=== PATIENT | male | born 1990 | race Caucasian/White ===

== ENCOUNTER 2018-07-13 14:36 | Emergency (ER) | payer MEDICAID, OTHER ==
[~2018-07-13] VITALS: Ht 177.8 cm; Wt 63.6 kg
[2018-07-13] MEDS ORDERED: HYDR-565 PO (15:20)
[2018-07-13] MEDS ORDERED: TETanus/Pertussis (Acell)/Diphther VAC/PF (Tdap-Adult) 0.5ml syringe IM ONE (15:25)
[2018-07-13] MEDS ORDERED: HYDROcodone/acetaminophen 10/325mg tab PO ONE (15:30)
[2018-07-13 16:46] VITALS: BP 123/63
== END 2018-07-13 16:47 | disposition home or self-care (01) ==
LOC: ER 14:37
DX: S71.001A Unspecified open wound, right hip, initial encounter (principal); S60.511A Abrasion of right hand, initial encounter; F12.90 Cannabis use, unspecified, uncomplicated; Z79.899 Other long term (current) drug therapy; V29.9XXA Motorcycle rider (driver) (passenger) injured in unspecified traffic accident, initial encounter; Y93.89 Activity, other specified; Y92.89 Other specified places as the place of occurrence of the external cause; Y99.8 Other external cause status
CPT/HCPCS: 73110; 73502; 90471; 90715; 99284; A6223; A6255; A6449

== ENCOUNTER 2020-06-25 13:52 | Emergency (ER) | payer MEDICAID, OTHER ==
[~2020-06-25] VITALS: Ht 177.8 cm; Wt 63.0 kg
[~2020-06-25 13:52] MED LIST: ONDA4TAB6 PO
[2020-06-25] MEDS ORDERED: ondansetron/PF 4mg/2ml inj IV ONE (14:05)
[2020-06-25] MEDS ORDERED: morphine 4 MG/ML inj SYRINge IV ONE (14:05)
[2020-06-25] MEDS ORDERED: iohexol 300mg/ml 100ml inj. ONE (14:25)
[2020-06-25] MEDS ORDERED: bacitracin 15gm ointment TP ONE (14:25)
[2020-06-25] MEDS ORDERED: LIDOcaine Viscous 15ml cup TP ONE (14:25)
--- NOTE | 2020-06-25 14:31 | NUR ---
PT TO CT VIA PAVEL
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
[2020-06-25 15:13] LABS: BASOPHILS % (AUTO) 0.1 % (0-1); EOSINOPHILS % (AUTO) 0.1 % (0-6); HEMATOCRIT 43.6 % (42.0-52.0); HEMOGLOBIN 14.6 g/dl (14.0-17.9); LYMPHOCYTES % (AUTO) 3.6 % (21-51); MEAN CORPUSCULAR HEMOGLOBIN 31.7 PG (27.0-31.0); MEAN CORPUSCULAR HGB CONC 33.5 g/dL (33.0-36.5); MEAN CORPUSCULAR VOLUME 94.5 FL (78-98); MEAN PLATELET VOLUME 8.9 FL (7.4-10.4); MONOCYTES # (AUTO) 1.4 X10'3 (0-0.9); MONOCYTES % (AUTO) 5.4 % (2-12); NEUTROPHILS # (AUTO) 23.9 X10'3 (1.8-7.7); NEUTROPHILS % (AUTO) 90.8 % (42-75); PLATELET COUNT 178 X10'3 (140-440); RED BLOOD COUNT 4.61 X10'6 (4.70-6.10); RED CELL DISTRIBUTION WIDTH 13.5 % (11.5-14.5)
[2020-06-25 15:15] LABS: WHITE BLOOD COUNT 26.3 X10'3 (4.5-11.0)
--- NOTE | 2020-06-25 15:16 | NUR ---
critical value WBC 26.3
[2020-06-25 15:28] LABS: ALANINE AMINOTRANSFERASE 23 U/L (12-78); ALBUMIN 3.5 G/DL (3.4-5.0); ALBUMIN/GLOBULIN RATIO 1.3 (1.1-1.5); ALKALINE PHOSPHATASE 48 IU/L (46-116); ANION GAP 5 (8-16); ASPARTATE AMINO TRANSFERASE 27 U/L (10-37); BILIRUBIN,TOTAL 0.7 MG/DL (0.1-1.0); BLOOD UREA NITROGEN 16 MG/DL (7-18); BUN/CREATININE RATIO 15.1 (5.4-32.0); CALCIUM 8.4 MG/DL (8.5-10.1); CHLORIDE 105 MMOL/L (99-107); CREATININE 1.06 MG/DL (0.60-1.10); GLUCOSE 87 MG/DL (70-104); POTASSIUM 3.5 MMOL/L (3.5-5.1); SODIUM 137 MMOL/L (135-145); TOTAL CARBON DIOXIDE 26.9 MMOL/L (24-32); TOTAL PROTEIN 6.3 G/DL (6.4-8.2); eGFR 83 ML/MIN
[2020-06-25] MEDS ORDERED: normal saline 1000ML IV soln IV ONE (15:30)
[2020-06-25 15:33] LABS: ETHANOL < 0.010 GM/DL (0.0-0.010); TROPONIN I < 0.04 NG/ML (0.0-0.05)
[2020-06-25 15:39] LABS: PLATELET ESTIMATE NORMAL; TOTAL CELLS COUNTED 100
[2020-06-25 15:45] LABS: CLARITY,URINE CLEAR (Clear); COLOR,URINE YELLOW (Yellow); GLUCOSE, URINE NEGATIVE (Neg); KETONES,URINE NEGATIVE (Neg); LEUKOCYTE ESTERASE ,URINE NEGATIVE (Neg); NITRITES, URINE NEGATIVE (Neg); OCCULT BLOOD,URINE NEGATIVE (Neg); PROTEIN,URINE TRACE mg/dl (Neg); UROBILINOGEN,URINE 0.2 E.U/dL (0.2-1.0)
[2020-06-25 15:49] LABS: UA COLLECTION TYPE URINAL
[2020-06-25 15:50] LABS: BACTERIA,URINE NONE SEEN /HPF (Neg); HYALINE CASTS 0-3 /LPF (NEGATIVE); MUCUS STRANDS MODERATE /LPF (Neg); RBC,URINE NONE SEEN /HPF (0-2); SQUAMOUS EPITHELIAL CELL,UR NONE SEEN /LPF (FEW); WBC,URINE 0-4 /HPF (0-4)
[2020-06-25 15:55] LABS: URINE AMPHETAMINE SCREEN NEGATIVE (Neg); URINE BARBITUATE SCREEN NEGATIVE (Neg); URINE BENZODIAZEPINES SCREEN NEGATIVE (Neg); URINE CANNABINOID SCREEN POSITIVE (Neg); URINE COCAINE SCREEN POSITIVE (Neg); URINE METHADONE SCREEN NEGATIVE (Neg); URINE OPIATE SCREEN POSITIVE (Neg); URINE PHENCYCLIDINE SCREEN NEGATIVE (Neg)
--- NOTE | 2020-06-25 16:32 | NUR ---
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
--- NOTE | 2020-06-25 16:37 | NUR ---
2ND LITER NS INFUSING W/O
[2020-06-25 17:19] VITALS: BP 134/94
== END 2020-06-25 17:22 | disposition home or self-care (01) ==
LOC: ER 13:53
DX: S20.211A Contusion of right front wall of thorax, initial encounter (principal); T14.8XXA Other injury of unspecified body region, initial encounter; F12.90 Cannabis use, unspecified, uncomplicated; F14.90 Cocaine use, unspecified, uncomplicated; Z72.89 Other problems related to lifestyle; Z79.899 Other long term (current) drug therapy; V86.96XA Unspecified occupant of dirt bike or motor/cross bike injured in nontraffic accident, initial encounter; Y93.89 Activity, other specified; Y92.89 Other specified places as the place of occurrence of the external cause; Y99.8 Other external cause status
CPT/HCPCS: 36415; 70450; 71260; 72125; 74177; 80053; 80305; 80320; 81001; 83605; 84145; 84484; 85025; 87040; 96374; 96375; 99285; J2270; J2405; J7030; Q9967

== ENCOUNTER 2021-01-08 14:18 | Emergency (ER) | payer MEDICAID ==
[~2021-01-08] VITALS: Ht 175.3 cm; Wt 61.4 kg
[2021-01-08 15:25] LABS: BASOPHILS # (AUTO) 0.1 X10'3 (0-0.2); BASOPHILS % (AUTO) 0.4 % (0-1); EOSINOPHILS # (AUTO) 0.2 X10'3 (0-0.9); EOSINOPHILS % (AUTO) 1.3 % (0-6); HEMATOCRIT 47.3 % (42.0-52.0); HEMOGLOBIN 15.9 g/dl (14.0-17.9); LYMPHOCYTES # (AUTO) 3.1 X10'3 (1.1-4.8); LYMPHOCYTES % (AUTO) 18.1 % (21-51); MEAN CORPUSCULAR HEMOGLOBIN 31.3 PG (27.0-31.0); MEAN CORPUSCULAR HGB CONC 33.6 g/dL (33.0-36.5); MEAN CORPUSCULAR VOLUME 93.1 FL (78-98); MEAN PLATELET VOLUME 8.9 FL (7.4-10.4); MONOCYTES # (AUTO) 0.8 X10'3 (0-0.9); MONOCYTES % (AUTO) 4.7 % (2-12); NEUTROPHILS # (AUTO) 12.8 X10'3 (1.8-7.7); NEUTROPHILS % (AUTO) 75.5 % (42-75); PLATELET COUNT 238 X10'3 (140-440); RED BLOOD COUNT 5.08 X10'6 (4.70-6.10); RED CELL DISTRIBUTION WIDTH 13.6 % (11.5-14.5); WHITE BLOOD COUNT 16.9 X10'3 (4.5-11.0)
[2021-01-08 15:37] LABS: PARTIAL THROMBOPLASTIN TIME 26 SECONDS (22-32)
[2021-01-08 15:40] LABS: ALANINE AMINOTRANSFERASE 25 U/L (12-78); ALBUMIN 4.1 G/DL (3.4-5.0); ALBUMIN/GLOBULIN RATIO 1.1 (1.1-1.5); ALKALINE PHOSPHATASE 78 IU/L (46-116); AMYLASE 81 U/L (25-115); ANION GAP 6 (8-16); ASPARTATE AMINO TRANSFERASE 13 U/L (10-37); BILIRUBIN,TOTAL 0.4 MG/DL (0.1-1.0); BLOOD UREA NITROGEN 18 MG/DL (7-18); BUN/CREATININE RATIO 19.8 (5.4-32.0); CALCIUM 9.5 MG/DL (8.5-10.1); CHLORIDE 104 MMOL/L (99-107); CREATININE 0.91 MG/DL (0.60-1.10); GLUCOSE 104 MG/DL (70-104); LIPASE 115 U/L (73-393); POTASSIUM 4.1 MMOL/L (3.5-5.1); SODIUM 139 MMOL/L (135-145); TOTAL CARBON DIOXIDE 28.8 MMOL/L (24-32); TOTAL PROTEIN 7.7 G/DL (6.4-8.2); eGFR > 90 ML/MIN
[2021-01-08] MEDS ORDERED: proCHLORperazine 10 MG/2 ml inj IV ONE ×2 (15:50→16:25)
[2021-01-08] MEDS ORDERED: normal saline 1000ML IV soln IVB ONE (16:25)
[2021-01-08] MEDS ORDERED: diphenhydrAMINE 50 mg/ml inj IV ONE (16:25)
[2021-01-08] MEDS ORDERED: ketorolac tromethamine 15mg/ml inj. IV ONE (16:25)
[2021-01-08 17:41] VITALS: BP 134/89
== END 2021-01-08 17:42 | disposition home or self-care (01) ==
LOC: ER 14:18
DX: B34.9 Viral infection, unspecified (principal); R51.9 Headache, unspecified; R53.1 Weakness; R11.10 Vomiting, unspecified; R20.0 Anesthesia of skin; R10.9 Unspecified abdominal pain; F12.90 Cannabis use, unspecified, uncomplicated; Z79.899 Other long term (current) drug therapy
CPT/HCPCS: 80053; 82150; 83690; 85025; 85610; 85730; 96361; 96374; 96375; 99284; J0780; J1200; J1885; J7030

== ENCOUNTER 2021-03-17 22:36 | Emergency (ER) | payer MEDICAID ==
[~2021-03-17] VITALS: Ht 177.8 cm; Wt 63.6 kg
[2021-03-17] MEDS ORDERED: proparacaine 0.5% ophthalmic drops 15ml EACHEYE ONE (23:30)
[2021-03-17] MEDS ORDERED: proparacaine 0.5% ophthalmic drops 15ml ONE (23:32)
--- NOTE | 2021-03-17 23:34 | NUR ---
he was in such pain that the PA ordered the eye gtts for him.
--- NOTE | 2021-03-17 23:40 | NUR ---
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 Waiting to be evaluated
[2021-03-17] MEDS ORDERED: gentamicin 0.3% ophthalmic drops 5ML EACHEYE ONE (23:55)
--- NOTE | 2021-03-17 23:59 | NUR ---
dr. johnson reports to pt he has a suspected "welinding keratitis". pt to be given pain meds prior to dc and has someone who can pick him up. pt reports the eye drops have helped with the pain.
[2021-03-18] MEDS ORDERED: HYDROcodone/acetaminophen 5mg/325mg tablet PO ONE (00:05)
[2021-03-18] MEDS ORDERED: HYDR-3965 PO (00:06)
[2021-03-18 00:18] VITALS: BP 124/90
== END 2021-03-18 00:21 | disposition home or self-care (01) ==
LOC: ER 22:36
DX: H16.133 Photokeratitis, bilateral (principal); H57.13 Ocular pain, bilateral; F12.90 Cannabis use, unspecified, uncomplicated; Z79.899 Other long term (current) drug therapy
CPT/HCPCS: 99283

== ENCOUNTER 2021-09-10 02:02 | Emergency (ER) | payer MEDICAID ==
[~2021-09-10] VITALS: Ht 177.8 cm; Wt 59.1 kg
[2021-09-10 02:06] VITALS: BP 115/76
[2021-09-10] MEDS ORDERED: proparacaine 0.5% ophthalmic drops 15ml EACHEYE ONE (02:15)
[2021-09-10] MEDS ORDERED: OXYC-145 PO (03:04)
[2021-09-10] MEDS ORDERED: ERYT1OIN6 EACHEYE (03:04)
[2021-09-10] MEDS ORDERED: oxyCODONE/APAP 5-325mg tablet PO ONE ×2 (03:05→03:25)
== END 2021-09-10 03:30 | disposition home or self-care (01) ==
LOC: ER 02:03
DX: H16.139 Photokeratitis, unspecified eye (principal); H16.133 Photokeratitis, bilateral; F12.10 Cannabis abuse, uncomplicated
CPT/HCPCS: 99283

== ENCOUNTER 2021-12-23 06:51 | Emergency (ER) | payer MEDICAID ==
[~2021-12-23] VITALS: Ht 177.8 cm; Wt 56.0 kg
[~2021-12-23 06:51] MED LIST changes: +OXYC-145 PO
[2021-12-23 06:54] VITALS: BP 135/101
[2021-12-23] MEDS ORDERED: ondansetron 4mg rapidly disintigrating tab PO ONE (07:25)
[2021-12-23] MEDS ORDERED: ibuprofen tablet 400 MG TABLET PO ONE (07:25)
[2021-12-23] MEDS ORDERED: acetaminophen 325mg tablet PO ONE (07:25)
[2021-12-23] MEDS ORDERED: SULF1TAB49 PO (07:43)
[2021-12-23] MEDS ORDERED: bacitracin 15gm ointment TP ONE (07:45)
== END 2021-12-23 07:49 | disposition home or self-care (01) ==
LOC: ER 06:51
DX: L02.211 Cutaneous abscess of abdominal wall (principal); L03.311 Cellulitis of abdominal wall; F12.90 Cannabis use, unspecified, uncomplicated; Z79.2 Long term (current) use of antibiotics; Z79.899 Other long term (current) drug therapy
CPT/HCPCS: 10060; 99284

== ENCOUNTER 2021-12-24 07:10 | Emergency (ER) | payer MEDICAID ==
[~2021-12-24] VITALS: Ht 177.8 cm; Wt 59.8 kg
[~2021-12-24 07:10] MED LIST changes: +SULF1TAB49 PO
[2021-12-24 07:11] VITALS: BP 127/90
[2021-12-24] MEDS ORDERED: LIDOcaine 1% W/epiNEPHrine 1:100,000 20ml vial ONE (08:00)
== END 2021-12-24 08:45 | disposition home or self-care (01) ==
LOC: ER 07:10
DX: L02.211 Cutaneous abscess of abdominal wall (principal); F12.10 Cannabis abuse, uncomplicated
CPT/HCPCS: 10060; 99282; J3490

== ENCOUNTER 2023-09-02 15:58 | Emergency (ER) | payer MEDICAID ==
[~2023-09-02] VITALS: Ht 177.8 cm; Wt 70.0 kg
[~2023-09-02 15:58] MED LIST changes: -SULF1TAB49 PO
[2023-09-02 16:04] VITALS: BP 156/104; PULSE 88; RESP 18; O2SAT 99
[2023-09-02] MEDS ORDERED: LIDOcaine 1% 30ml preserv. free vial IJ ONE ×2 (16:50→17:05)
[2023-09-02] MEDS ORDERED: CEPH-585 PO (17:08)
[2023-09-02 18:03] VITALS: TEMP 98.8
== END 2023-09-02 18:07 | disposition home or self-care (01) ==
LOC: ER 15:59
DX: S61.217A Laceration without foreign body of left little finger without damage to nail, initial encounter (principal); X58.XXXA Exposure to other specified factors, initial encounter; Y93.89 Activity, other specified; Y92.89 Other specified places as the place of occurrence of the external cause; Y99.8 Other external cause status
CPT/HCPCS: 12001; 73140; 99283; A6258

== ENCOUNTER 2025-03-25 15:31 | Emergency (ER) | payer MEDICAID ==
[~2025-03-25] VITALS: Ht 177.8 cm; Wt 56.7 kg
[2025-03-25 15:37] VITALS: TEMP 99.8
--- NOTE | 2025-03-25 16:28 | Physician Documentation ---
History of Present Illness ~ Chief Complaint: Abdominal Pain w/vomiting Stated Complaint: FEVER Time Seen by MD: 16:10 Primary Medical Doctor: NONE HPI This is a 34-year-old male who presents with 4-5 days of nausea, vomiting and diarrhea, patient reports his upper abdomen has begun to hurt as well though he is unsure if this is from the persistent vomiting. Patient also reports generalized back pain, sore throat, and intermittent cough that has began since his illness began. Patient reports that he has been unable to keep any food down and any time he drinks water he vomits. Medication Reconciliation Allergies: Coded Allergies: No Known Allergies (Unverified , 03/17/21) Scheduled Ondansetron Hcl (Zofran), 1 TAB PO Q8H Scheduled PRN ONDANSETRON ODT 4mg tablet (Ondansetron Odt), 1 TAB PO Q6H PRN PRN for nausea/vomiting Oxycodone HCl/Acetaminophen (Percocet 5-325 mg Tablet), 1-2 TABLET PO Q4H PRN for pain Past Medical History Past Medical History: No Pertinent History Past Surgical History: no surgical history Alcohol Use: None Drug Use: marijuana Lives In: Home Occupation: employed Review of Systems ROS Nausea, vomiting, diarrhea, back pain, sore throat as stated above in the HPI, otherwise all systems are reviewed and negative. Physical Exam Vital Signs: Temperature: 99.8, Source: Oral, Heart Rate: 85, Respiratory Rate: 16, BP: 128/96, Pulse Oximetry: 97, Weight: 56.700 Oxygen Flow Rate: 0 Physical Exam VITALS: Reviewed and as above. GENERAL: Alert, nontoxic appearing, no apparent distress. 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 Tablet (Zofran Odt T (03/25/25 17:05) Normal Saline 1000ml (Sodium Chloride 10 (03/25/25 17:45) Ketorolac Trometh 15mg/Ml Vial (Toradol (03/25/25 17:45) Ketorolac Trometh 15mg/Ml Vial (Toradol (03/25/25 17:58) Ondansetron Disint. Tablet (Zofran Odt T (03/25/25 19:35) Medications Received in ER Medications (Trade) Dose Ordered Sig/Pratik Route PRN Reason Start Time Stop Time Status Last Admin Dose Admin (Zofran ODT tablet) 4 mg ONCE ONCE PO 03/25/25 17:05 03/25/25 17:06 DC 03/25/25 17:45 4 MG (sodium chloride 1000ml IV soln) 1,000 ml ONCE ONCE IVB 03/25/25 17:45 03/25/25 17:47 DC 03/25/25 18:00 1,000 ML (Toradol injection) 15 mg ONCE STAT IV 03/25/25 17:58 03/25/25 17:59 DC 03/25/25 17:59 15 MG (Zofran ODT tablet) 4 mg ONCE ONCE PO 03/25/25 19:35 03/25/25 19:39 DC 03/25/25 19:43 4 MG Vital Signs 03/25/25 03/25/25 03/25/25 03/25/25 15:37 17:59 19:32 19:32 Temp 99.8 Pulse 85 78 Resp 16 15 16 B/P (MAP) 128/96 123/51 (75) Pulse Ox 97 97 O2 Flow Rate 0 0 03/25/25 19:47 Pulse 79 Resp 16 B/P (MAP) 98/67 Pulse Ox 99 Laboratory Tests Test 03/25/25 16:04 03/25/25 18:24 White Blood Count 8.7 Red Blood Count 5.27 Hemoglobin 16.6 Hematocrit 47.8 Mean Corpuscular Volume 90.7 Mean Corpuscular Hemoglobin 31.5 H Mean Corpuscular Hemoglobin Concent 34.7 Red Cell Distribution Width 13.5 Platelet Count 149 Mean Platelet Volume 9.5 Neutrophils (%) (Auto) 74.6 Lymphocytes (%) (Auto) 15.7 L Monocytes (%) (Auto) 9.4 Eosinophils (%) (Auto) 0.1 Basophils (%) (Auto) 0.2 Neutrophils # (Auto) 6.5 Lymphocytes # (Auto) 1.4 Monocytes # (Auto) 0.8 Eosinophils # (Auto) 0.0 Basophils # (Auto) 0.0 CBC Comment Sodium Level 138 Potassium Level 3.6 Chloride Level 102 Carbon Dioxide Level 27.9 Anion Gap 8 Blood Urea Nitrogen 11 Creatinine 1.05 Estimated GFR/1.73 m2 81 BUN/Creatinine Ratio 10.5 Glucose Level 95 Calcium Level 8.7 Total Bilirubin 0.6 Aspartate Amino Transf (AST/SGOT) 27 Alanine Aminotransferase (ALT/SGPT) 29 Alkaline Phosphatase 78 Total Protein 7.3 Albumin 3.8 Globulin 3.5 Albumin/Globulin Ratio 1.1 Lipase 27 Chemistry Comments SARS-CoV-2 Antigen (Rapid) Negative Medical Decision Making Findings This 34-year-old male presented with four days of nausea, vomiting diarrhea, sore throat, nasal congestion and intermittent cough along with subjective fever, symptoms do appear to be viral origin based on history and physical. Patient's labs were without evidence of significant electrolyte or metabolic derangement and did not indicate systemic infection, patient's vital signs stab le and physical exam relatively benign. I suspect patient has upper abdominal pain was related to pain from vomiting as patient reported the pain decreases after not vomiting for some time, therefore further imaging of his abdomen was not indicated. Patient was medicated for Zofran and received 1L of IV fluids reporting significant improvement in symptoms and is now able to tolerate p.o. intake. I discussed patient plan for discharge with a prescription for Zofran which he agrees to, discussed with patient careful return to care precautions which he verbalized understanding of reporting that he would return to the [facility] department if symptoms were to return or worsen. At this time patient is appropriate for discharge and outpatient follow up. Diff Dx Pain:Considerations: Include: Appendicitis, Cholangitis, Cholecystitis, Cholelithasis, Constipation, Diverticular disease, Gastritis, Gastroenteritis, Inflammatory BD, Urinary tract infection, Urolithiasis Diff Dx N/V/D:Considerations: Include: Diarrhea - bacterial, Diarrhea - parasitic, Diarrhea - viral, Electrolyte imbalance, Food poisoning, Hypovolemia, Hypotension Departure Disposition: HOME / SELF CARE / HOMELESS Impression: Primary Impression: Vomiting Qualified Codes: R11.2 - Nausea with vomiting, unspecified Additional Impression: Diarrhea Qualified Codes: R19.7 - Diarrhea, unspecified Condition: Improved Discharge Instructions: Viral Gastroenteritis, Adult, [id number] Additional Instructions: Please take the prescribed Zofran to help with your vomiting in order to maintain oral intake of food and water, begin eating slowly small meals and sips until you can tolerate larger quantities of food and drink. You may use ibuprofen and or Tylenol as needed for pain or fever as directed by [id number] packaging. Please follow up with your primary care provider in the next few days. Please return to the emergency department for any new or worsening concerning symptoms including but not limited to fever over 100.4 that does not lower with ibuprofen or Tylenol or if you are not able to eat or drink. Referrals: NO PRIMARY CARE PROVIDER (PCP) Prescriptions ONDANSETRON ODT 4mg tablet (ONDANSETRON ODT) 4 Mg Tab.rapdis 1 TAB PO Q6H PRN PRN for nausea/vomiting for 4 Days, #16 TAB 0 Refills Prov: JOSHUA CUEVAS 03/25/25 Education Educated: Patient Educated regarding: diagnosis, treatment, prognosis, need for follow up Signature Scribe Signature: No scribe Attestation: The note accurately reflects work and decisions made by me.ALEX Kellogg 03/25/25 22:06 JOSHUA CUEVAS March 25, 2025 16:28
[2025-03-25 16:43] LABS: ALANINE AMINOTRANSFERASE 29 U/L (12-78); ALBUMIN 3.8 G/DL (3.4-5.0); ALBUMIN/GLOBULIN RATIO 1.1 (1.1-1.5); ALKALINE PHOSPHATASE 78 IU/L (46-116); ANION GAP 8 (8-16); ASPARTATE AMINO TRANSFERASE 27 U/L (10-37); BILIRUBIN,TOTAL 0.6 MG/DL (0.1-1.0); BLOOD UREA NITROGEN 11 MG/DL (7-18); BUN/CREATININE RATIO 10.5 (10.0-20.0); CALCIUM 8.7 MG/DL (8.5-10.1); CHLORIDE 102 MMOL/L (99-107); CREATININE 1.05 MG/DL (0.60-1.10); GLUCOSE 95 MG/DL (70-104); POTASSIUM 3.6 MMOL/L (3.5-5.1); SODIUM 138 MMOL/L (135-145); TOTAL CARBON DIOXIDE 27.9 MMOL/L (24-32); TOTAL PROTEIN 7.3 G/DL (6.4-8.2); eCRCL 80 ML/MIN; eGFR 81 ML/MIN
[2025-03-25 16:55] LABS: BASOPHILS % (AUTO) 0.2 % (0-1); EOSINOPHILS % (AUTO) 0.1 % (0-6); HEMATOCRIT 47.8 % (42.0-52.0); HEMOGLOBIN 16.6 g/dl (14.0-17.9); LYMPHOCYTES # (AUTO) 1.4 X10'3 (1.1-4.8); LYMPHOCYTES % (AUTO) 15.7 % (21-51); MEAN CORPUSCULAR HEMOGLOBIN 31.5 PG (27.0-31.0); MEAN CORPUSCULAR HGB CONC 34.7 g/dL (33.0-36.5); MEAN CORPUSCULAR VOLUME 90.7 FL (78-98); MEAN PLATELET VOLUME 9.5 FL (7.4-10.4); MONOCYTES # (AUTO) 0.8 X10'3 (0-0.9); MONOCYTES % (AUTO) 9.4 % (2-12); NEUTROPHILS # (AUTO) 6.5 X10'3 (1.8-7.7); NEUTROPHILS % (AUTO) 74.6 % (42-75); PLATELET COUNT 149 X10'3 (140-440); RED BLOOD COUNT 5.27 X10'6 (4.70-6.10); RED CELL DISTRIBUTION WIDTH 13.5 % (11.5-14.5); WHITE BLOOD COUNT 8.7 X10'3 (4.5-11.0)
[2025-03-25 16:58] LABS: LIPASE 27 U/L (16-77)
[2025-03-25] MEDS: ondansetron 4mg rapidly disintigrating tab PO ONE ×2 (17:45→19:43)
[2025-03-25] MEDS: ketorolac trometh 15mg/ml vial 15 MG/ML ML IV STA (17:59)
[2025-03-25] MEDS: normal saline 1000ML IV soln IVB ONE (18:00)
[2025-03-25] MEDS: ketorolac trometh 15mg/ml vial 15 MG/ML ML IM ONE (18:00)
[2025-03-25] MEDS ORDERED: ONDA-243 PO (19:14)
[2025-03-25 19:47] VITALS: BP 98/67; PULSE 79; RESP 16; O2SAT 99
== END 2025-03-25 19:48 | disposition home or self-care (01) ==
LOC: ER 15:32
DX: R11.2 Nausea with vomiting, unspecified (principal); R19.7 Diarrhea, unspecified; F12.90 Cannabis use, unspecified, uncomplicated; Z20.822 Contact with and (suspected) exposure to COVID-19; Z79.899 Other long term (current) drug therapy
CPT/HCPCS: 36415; 80053; 83690; 85025; 87811; 96361; 96374; 99283; J1885; J7030

== ENCOUNTER 2025-07-19 10:59 | Emergency (ER) | payer MEDICAID ==
[~2025-07-19] VITALS: Ht 175.3 cm; Wt 81.8 kg
[~2025-07-19 10:59] MED LIST changes: +ONDA-243 PO
[2025-07-19 11:01] VITALS: BP 123/87; PULSE 91; RESP 18; TEMP 98.2; O2SAT 96
--- NOTE | 2025-07-19 15:12 | Physician Documentation ---
History of Present Illness ~ Chief Complaint: Bite-insect Stated Complaint: POSS BEE STING Primary Medical Doctor: NONE HPI This is a 34-year-old male who presents with a possible bee sting to his right hand, patient reports a previous allergy to bees. Patient reports no shortness of breath, nausea, or throat tightness. Patient reports pain and swelling limited to palm of right hand. Patient reports no other acute symptoms or concerns. Tetanus within 5 years?: Yes Medication Reconciliation Allergies: Coded Allergies: No Known Allergies (Unverified , 07/19/25) Scheduled Ondansetron Hcl (Zofran), 1 TAB PO Q8H Scheduled PRN ONDANSETRON ODT 4mg tablet (Ondansetron Odt), 1 TAB PO Q6H PRN PRN for nausea/vomiting Oxycodone HCl/Acetaminophen (Percocet 5-325 mg Tablet), 1-2 TABLET PO Q4H PRN for pain Past Medical History Past Medical History: No Pertinent History Past Surgical History: no surgical history Smoking Status: Unknown if ever smoked Alcohol Use: None Drug Use: marijuana Lives In: Home Occupation: employed Review of Systems ROS As stated above in the HPI, otherwise all systems are reviewed and negative. Physical Exam Vital Signs: Temperature: 98.2, Source: Temporal, Heart Rate: 91, Respiratory Rate: 18, BP: 123/87, Pulse Oximetry: 96, Weight: 81.820 Oxygen Flow Rate: 0 Physical Exam VITALS: Reviewed and as above. GENERAL: Alert, nontoxic appearing, no apparent distress. HEENT: No facial swelling RESPIRATORY: No increased work of breathing, no respiratory distress, speaking in full clear sentences, clear lung sounds in all kahn, no wheezing, no stridor CV: Regular rate and rhythm no murmur MUSCULOSKELETAL: Palm of right hand mild tenderness to palpation SKIN: Skin of right palmar aspect of hand at the base of 1st finger mild swelling without significant erythema, no visible stinger, no visible wound, Progress Results/Orders Results/Orders Vital Signs 07/19/25 11:01 Temp 98.2 Pulse 91 Resp 18 B/P (MAP) 123/87 Pulse Ox 96 O2 Flow Rate 0 Medical Decision Making Findings MSE performed in triage and patient returned to ED lobby by nursing staff to await available ED room. Reassuring that patient is not demonstrating respiratory symptoms or other systemic symptoms. Patient appears to have eloped from lobby. Differential Dx:Considerations: Include: Abrasion, Allergic reaction, Anaphylaxis, Cellulitis, Insect envenomation, Laceration, Neurovascular injury, Punture wound, Retained foreign body, Urticaria Departure Disposition: 07 LEFT AWOL/ELOPED Impression: Primary Impression: Insect bites Qualified Codes: S60.561A - Insect bite (nonvenomous) of right hand, initial encounter; W57.XXXA - Bitten or stung by nonvenomous insect and other nonvenomous arthropods, initial encounter Condition: Stable Referrals: NO PRIMARY CARE PROVIDER (PCP) Signature Scribe Signature: No scribe Attestation: The note accurately reflects work and decisions made by me.ALEX Kellogg 07/19/25 20:37 JOSHUA CUEVAS Jul 19, 2025 15:12
== END 2025-07-19 12:34 | disposition left against medical advice (07) ==
LOC: ER 10:59
DX: S60.561A Insect bite (nonvenomous) of right hand, initial encounter (principal); F12.90 Cannabis use, unspecified, uncomplicated; W57.XXXA Bitten or stung by nonvenomous insect and other nonvenomous arthropods, initial encounter; Y93.89 Activity, other specified; Y92.89 Other specified places as the place of occurrence of the external cause; Y99.8 Other external cause status
CPT/HCPCS: 99282

== ENCOUNTER 2025-11-04 07:57 | Emergency (ER) | payer MEDICAID ==
[~2025-11-04] VITALS: Ht 177.8 cm; Wt 61.9 kg
[2025-11-04 08:22] VITALS: BP 136/93; PULSE 90; TEMP 97.9; O2SAT 98
[2025-11-04 09:18] LABS: LEUKOCYTE ESTERASE ,URINE NEGATIVE (Neg); NITRITES, URINE NEGATIVE (Neg); OCCULT BLOOD,URINE NEGATIVE (Neg)
[2025-11-04 09:47] LABS: UA COLLECTION TYPE CLN CATCH MIDSTREAM
[2025-11-04 10:14] VITALS: RESP 16
[2025-11-04] MEDS: ketorolac trometh 15mg/ml vial 15 MG/ML ML IM ONE (10:14)
--- NOTE | 2025-11-04 10:19 | RADIOLOGY REPORT ---
INDICATION: back pain x 10 days COMPARISON: None TECHNIQUE: 3 views of the lumbar spine were obtained. FINDINGS: The lumbar vertebral alignment is normal. 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 The paravertebral soft tissues are grossly unremarkable. IMPRESSION: No acute fracture or subluxation.
--- NOTE | 2025-11-04 11:12 | Physician Documentation ---
History of Present Illness ~ Chief Complaint: Back Pain Stated Complaint: BACK PAIN Time Seen by MD: 09:19 Primary Medical Doctor: NONE HPI Patient is a very pleasant 35-year-old male that presents to the emergency department for evaluation of back pain in the left low lumbosacral region times 10 days. Patient reports the pain is worse with bending over. Patient reports that the pain has become unbearable with activity. Patient denies any traumatic injury or known origin of injury or strain. Patient denies any incontinence of bowel or bladder no perineal numbness no numbness or tingling of his upper or lower extremities. Patient denies fever chills nausea vomiting diarrhea at this time. Patient denies CVA tenderness during examination. 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 Patient denies any significant past medical history. Patient denies any other symptoms at this time. Medication Reconciliation Allergies: Coded Allergies: No Known Allergies (Unverified , 11/04/25) Scheduled Ondansetron Hcl (Zofran), 1 TAB PO Q8H Scheduled PRN ONDANSETRON ODT 4mg tablet (Ondansetron Odt), 1 TAB PO Q6H PRN PRN for nausea/vomiting Oxycodone HCl/Acetaminophen (Percocet 5-325 mg Tablet), 1-2 TABLET PO Q4H PRN for pain Past Medical History Past Medical History: No Pertinent History Past Surgical History: no surgical history Alcohol Use: None Drug Use: marijuana Lives In: Home Occupation: employed Review of Systems ROS As stated above in the HPI, otherwise all systems are reviewed and negative. Physical Exam Physical Exam Vital Signs: Temperature: 97.9, Source: Temporal, Heart Rate: 90, Respiratory Rate: 16, BP: 136/93, Pulse Oximetry: 98, Weight: 61.900 Oxygen Flow Rate: 0 Physical Exam VITALS: Reviewed and as above. GENERAL: Alert, no apparent distress. HEENT: Normocephalic, atraumatic, PERRL, EOMI, dry mucosa, no erythema RESPIRATORY: Lungs clear, normal breath sounds, no respiratory distress. CHEST: No accessory muscle use, no retractions CV: Regular rate, rhythm, no edema, no murmur, No: JVD GI: Soft, non-tender, bowels sounds present, no rebound, guarding, or rigidity BACK: No CVA tenderness, or swelling MUSCULOSKELETAL No deformities, no edema, positive straight leg raise on the left side, patient demonstrates significant discomfort with bending, patient has mild reduced range of motion with hip bending upon examination, focal area of tenderness with palpation to the left lumbosacral region during examination. SKIN: Warm and dry, no rash NEURO: Oriented x4, No motor or sensory deficit PSYCH: Normal mood and affect, no agitation Progress Results/Orders Results/Orders Orders - DENISE CARVER Lumbar Spine Limited (11/04/25 09:46) Completed Orders - DENISE CARVER [employer] Ketorolac Trometh 15mg/Ml Vial (Toradol (11/04/25 09:45) Acetaminophen 325mg Tablet (Tylenol Tabl (11/04/25 09:45) Methylprednisolone Sod Succ (Solumedrol (11/04/25 09:45) Cyclobenzaprine Tablet (Flexeril Tablet) (11/04/25 09:45) Lumbar Spine Limited (11/04/25 09:46) Medications Received in ER Medications (Trade) Dose Ordered Sig/Pratik Route PRN Reason Start Time Stop Time Status Last Admin Dose Admin (Toradol injection) 30 mg ONCE ONCE IM 11/04/25 09:45 12 09:46 DC 11/04/25 10:14 30 MG (Tylenol tablet) 975 mg ONCE ONCE PO 11/04/25 09:45 12 09:46 DC 11/04/25 10:01 975 MG (SoluMEDROL 125mg inj) 125 mg ONCE ONCE IM 11/04/25 09:45 11/04/25 09:46 DC 11/04/25 10:15 125 MG (Flexeril tablet) 10 mg ONCE ONCE PO 11/04/25 09:45 12 09:46 DC 11/04/25 09:59 10 MG Vital Signs 11/04/25 11/04/25 08:22 10:14 Temp 97.9 Pulse 90 Resp 16 16 B/P (MAP) 136/93 Pulse Ox 98 O2 Flow Rate 0 Laboratory Tests Test 11/04/25 08:27 Urine Specimen Description Cln catch midstream Urine Color Yellow Urine Clarity Clear Urine pH 6.0 Urine Specific [place] 1.020 Urine Protein Negative Urine Glucose (UA) Negative Urine Ketones Trace H Urine Occult Blood Negative Urine Nitrite Negative Urine Bilirubin Small Urine Urobilinogen 0.2 Urine Leukocyte Esterase Negative Urine Culture Indicated Not ind Volume Urine Centrifuged 10 ml Urine Comment Medical Decision Making Additional information obtaine: other Findings Number of Diagnoses/Management Options: Moderate complexity Chief Complaint: Left low lumbosacral back pain for 10 days History of Present Illness: 35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 Patient reports frequent heavy lifting and physical ac tivity at work. Denies traumatic injury, bowel or bladder incontinence, urinary retention, saddle anesthesia, extremity numbness or tingling, fever, chills, nausea, vomiting, diarrhea, or costovertebral angle tenderness. Physical Examination: No red flag findings identified. No evidence of cauda equina syndrome, progressive neurologic deficit, or signs of infection. Diagnostic Studies: Lumbosacral x-ray negative for fractures or dislocations. Assessment: Nonspecific acute low back pain. The patient's presentation is consistent with mechanical low back pain without specific pathoanatomical cause. The absence of red flag symptoms (no trauma with neurologic deficit, no urinary retention, no saddle anesthesia, no fever, no history of cancer, no progressive motor or sensory loss) makes serious underlying pathology highly unlikely. Imaging was appropriately obtained given the patient's occupational history and was negative for fracture or bony abnormality. Risk of Data Reviewed: Low complexity. Lumbosacral x-ray reviewed and interpreted. Risk of Complications: Low risk. Most patients with acute low back pain improve over time regardless of treatment, with approximately 50% recovering completely in 2-3 weeks. The patient's young age, lack of comorbidities, and absence of red flags suggest favorable prognosis. Medical Decision Making: The patient received evidence-based acute treatment in the emergency department including ketorolac (NSAID), acetaminophen, methylprednisolone, and cyclobenzaprine. NSAIDs provide moderate-quality evidence for small improvement in pain intensity and function for acute low back pain. Skeletal muscle relax ants show moderate-quality evidence for small improvement in pain relief. While acetaminophen has traditionally been recommended, recent evidence shows it is ineffective for acute low back pain. The use of systemic corticosteroids has limited evidence for nonspecific low back pain, though may be considered for radicular symptoms. Discharge Plan: Patient education and reassurance: Counseled patient on the favorable prognosis of acute low back pain and high likelihood of substantial improvement within the first month. Advised that serious underlying pathology is highly unlikely given negative workup. Activity modification: Instructed to remain as active as tolerated and avoid bed rest. Encouraged to gradually resume normal activities and return to work as symptoms allow. Nonpharmacologic management: Recommended superficial heat application (moderate- quality evidence for moderate improvement in pain and function). Advised to continue self-care measures. Pharmacologic management: Prescribed NSAIDs (ibuprofen or naproxen) at lowest effective dose for shortest duration necessary, given moderate evidence for effectiveness. Prescribed cyclobenzaprine 5 mg three times daily as needed for muscle spasm, short-term use (up to 2-3 weeks). Counseled on potential sedating effects and to avoid alcohol and operating machinery. Advised against routine acetaminophen use given lack of evidence for acute low back pain. Follow-up: Return to primary care physician in 2-4 weeks if symptoms persist or worsen. Immediate return if develops red flag symptoms including progressive weakness, numbness, bowel or bladder dysfunction, or saddle anesthesia. Work considerations: Discussed potential need for temporary modified duty given occupation involving heavy lifting. Patient may benefit from ergonomic assessment and proper lifting techniques to prevent recurrence. Overall Complexity: Moderate complexity medical decision making based on moderate number of diagnoses/management options, low risk of data reviewed, and low risk of complications. Differential Dx:Considerations: Musculoskeletal pain, Pyelonephritis, Strain, Urinary obstruction, Renal infarction, Urinary tract infection, Other Departure Disposition: 01 HOME / SELF CARE / HOMELESS Impression: Primary Impression: Back problem Additional Impressions: Chronic back pain Strain of lumbar region Sciatica Condition: Stable Discharge Instructions: Sciatica, Lumbosacral Strain Additional Instructions: Your Diagnosis You have been diagnosed with nonspecific acute low back pain. This means you have pain in your lower back that is not caused by a serious medical condition. Your x-rays showed no broken bones or other problems. This type of back pain is very common, especially for people who do physical work. What to Expect The good news is that most people with acute low back pain get better over time, even without treatment. About half of people recover completely within 2-3 weeks. Your pain should gradually improve as you follow the instructions below. What You Should Do at Home Stay Active Do NOT stay in bed. Bed rest can actually make your back pain worse. Continue your normal daily activities as much as you can, even if you have some pain. Start slowly and gradually increase your activity level as your pain improves. Light walking and gentle stretching can help your recovery. Use Heat Therapy Apply a heating pad or hot pack to your lower back for 15-20 minutes at a time. This can help reduce pain and muscle spasm. Be careful not to burn your skinuse a towel between the heat source and your skin if needed. Take Your Medications as Directed You have been prescribed cyclobenzaprine (Flexeril) to help relax your back muscles. This medication is only for short-term use (up to 2-3 weeks). IMPORTANT SAFETY WARNINGS about Flexeril: This medication can make you very drowsy and dizzy. Do NOT drive a car, operate machinery, or do any activity that requires you to be alert while taking this medication. Do NOT drink alcohol while taking this medication. Take this medication at night before bed as directed. Do NOT take this medication with other medications that make you sleepy unless your doctor tells you to. If you take antidepressants (such as SSRIs, SNRIs, or tricyclic antidepressants), tramadol, bupropion, meperidine, or verapamil, tell your doctor right away, as combining these with Flexeril can cause serious side effects. [id number] Pain Medications You may take ibuprofen (Advil, Motrin) or naproxen (Aleve) for pain relief. Follow the directions on the bottle and take the lowest dose that helps your pain. Take these medications with food to protect your stomach. Do not take these medications for more than a few weeks without talking to your doctor. Work Considerations Because you work in construction and lift heavy objects, you may need to: Avoid heavy lifting until your pain improves Ask your employer about temporary light duty or modified work Use proper lifting techniques when you return to full duty (bend your knees, keep your back straight, hold objects close to your body) When to Return to the Emergency Department Come back to the emergency department immediately if you develop any of these warning signs: Inability to urinate or loss of control of your bladder Loss of control of your bowels Numbness in your groin, buttocks, or genital area (called "saddle numbness") New weakness in your legs that gets worse Numbness or tingling in your legs that gets worse Fever or chills Severe pain that keeps getting worse despite medication Follow-Up Care Schedule an appointment with your primary care doctor within 2-4 weeks, especially if your pain is not improving. If your pain is not better after 8 weeks, you may need additional evaluation or treatment. Questions? If you have questions about your back pain or these instructions, contact your primary care doctor. Remember: Most people with back pain like yours get better with time and self- care. Stay active, use heat, take your medications safely, and follow up with your doctor as recommended. Referrals: NO PRIMARY CARE PROVIDER (PCP) Prescriptions Cyclobenzaprine* (Cyclobenzaprine*) 10 Mg Tablet 1 TAB PO HS for muscle spasms for 10 Days, #10 TAB 0 Refills Prov: DENISE CARVER 11/04/25 Education Educated: Patient Educated regarding: diagnosis, treatment, need for follow up Signature Scribe Signature: A Attestation: Scribed for Denise Carver by ALEX Grissom . 11/04/25 11:30 DENISE CARVER Nov 04, 2025 11:12
[2025-11-04] MEDS ORDERED: CYCL-1 PO (11:29)
== END 2025-11-04 11:36 | disposition home or self-care (01) ==
LOC: ER 07:57
DX: S39.012A Strain of muscle, fascia and tendon of lower back, initial encounter (principal); F12.90 Cannabis use, unspecified, uncomplicated; Z79.899 Other long term (current) drug therapy; X50.0XXA Overexertion from strenuous movement or load, initial encounter; Y93.89 Activity, other specified; Y92.89 Other specified places as the place of occurrence of the external cause; Y99.8 Other external cause status
CPT/HCPCS: 72100; 81003; 96372; 99284; J1885; J2919